=== PATIENT | male | born 1965 | race Caucasian/White ===

== ENCOUNTER 2017-06-09 10:35 | Emergency (ER) | payer OTHER ==
[~2017-06-09] VITALS: Ht 165.1 cm; Wt 86.0 kg
[~2017-06-09 10:35] MED LIST: LORT5TAB PO; SULF-154 PO; VASO10TA8 PO
[2017-06-09 10:43] VITALS: BP 196/90; PULSE 80; RESP 16; TEMP 97.2; O2SAT 100
[2017-06-09] MEDS ORDERED: LISI40TA PO (10:59)
[2017-06-09] MEDS ORDERED: ALLO300T2 PO (10:59)
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
[2017-06-09] MEDS ORDERED: IBUP-232 PO (11:14)
[2017-06-09] MEDS ORDERED: CYCL1TAB29 PO (11:14)
[2017-06-09] MEDS ORDERED: TETANUS/DIPHTHERIA TOXOID ADULT 0.5 ML VIAL IM ONE (11:15)
[2017-06-09] MEDS ORDERED: IBUPROFEN 600 MG TAB PO ONE (11:15)
== END 2017-06-09 11:41 | disposition home or self-care (01) ==
LOC: PHEFT 10:35
DX: S50.11XA Contusion of right forearm, initial encounter (principal); S39.012A Strain of muscle, fascia and tendon of lower back, initial encounter; V89.2XXA Person injured in unspecified motor-vehicle accident, traffic, initial encounter
CPT/HCPCS: 90471; 90714